=== PATIENT | female | born 1985 | race African-American/Black ===

== ENCOUNTER 2019-07-30 20:45 | Emergency (ER) | payer SELFPAY | END 2019-07-30 22:24 | disposition left against medical advice (07) | LOC: EDBD 20:45 → ER 20:49 | DX: R53.83 Other fatigue (principal); Z53.21 Procedure and treatment not carried out due to patient leaving prior to being seen by health care provider ==

== ENCOUNTER 2023-11-21 08:57 | Emergency (ER) | payer OTHER ==
[~2023-11-21] VITALS: Ht 172.7 cm; Wt 114.3 kg
[2023-11-21] MEDS: SODIUM CHLORIDE 0.9% 1,000 ML IV ONE (09:39)
[2023-11-21] MEDS: ONDANSETRON HCL 4 MG/2 ML VIAL IV ONE ×3 (09:39→13:30)
[2023-11-21 10:05] LABS: Sodium 144 mmol/L (136-145)
[2023-11-21 10:06] LABS: Calcium 9.5 mg/dL (8.7-10.4); Carbon Dioxide 24 mmol/L (20-30)
[2023-11-21 10:11] LABS: BUN/Creatinine Ratio 8.6 (10.0-20.0); Blood Urea Nitrogen 13 mg/dL (9-23); Glucose 113 mg/dL (74-106)
[2023-11-21 10:18] LABS: Basophils # (auto) 0 10 ^3/uL (0-0.2); Basophils % (auto) 0.2 % (0.0-2.0); Eosinophils # (auto) 0 10 ^3/uL (0-0.8); Eosinophils % (auto) 0.3 % (0.0-7.0); Hematocrit 43.2 % (36.0-46.0); Lymphocytes # (auto) 0.4 10 ^3/uL (0.4-5.4); Lymphocytes % (auto) 3.3 % (10.0-50.0); Mean Corpuscular Hemoglobin 31.8 pg (28.0-32.0); Mean Corpuscular Hgb Conc. 34.8 g/dL (32.0-36.0); Mean Corpuscular Volume 91.5 fL (80.0-100.0); Monocytes # (auto) 0.2 10 ^3/uL (0-1.3); Neutrophils # (auto) 10.6 10 ^3/uL (1.6-8.6); Neutrophils % (auto) 94.2 % (37.0-80.0); Platelet Count (auto) 261 10^3/uL (140-450); Red Blood Cells 4.72 10^6/uL (4.0-5.20); Red Cell Distribution Width 12.5 % (11.8-14.3); White Blood Cell 11.3 10^3/uL (4.4-10.8)
[2023-11-21 10:44] LABS: Anion Gap 10 (5-15); Chloride 110 mmol/L (98-107)
[2023-11-21 10:49] LABS: Urine Bacteria None Seen /hpf (None Seen); Urine WBC None Seen /hpf (0 - 5)
[2023-11-21 11:09] LABS: Urine Blood Negative /uL (Negative); Urine Clarity Clear (Clear); Urine Protein, UAD Negative (Negative); Urine Specific Gravity 1.007 (1.001-1.035); Urine Urobilinogen Normal (Negative)
[2023-11-21 11:10] LABS: Urine Color Straw (Yellow)
[2023-11-21] MEDS: MORPHINE SULFATE 4 MG/ML SYR/VIAL IV ONE ×2 (11:48→13:31)
[2023-11-21 11:49] VITALS: PULSE 92; RESP 18; TEMP 98.2; O2SAT 99
[2023-11-21] MEDS ORDERED: ZOFR4T PO (13:13)
[2023-11-21] MEDS ORDERED: MORP15TA PO (13:13)
[2023-11-21] MEDS: ONDANSETRON HCL 4 MG/2 ML VIAL ONE (13:31)
[2023-11-21 14:01] VITALS: BP 125/79; PULSE 87; RESP 18
== END 2023-11-21 14:03 | disposition left against medical advice (07) ==
LOC: ER 08:57
DX: R10.2 Pelvic and perineal pain (principal); R11.2 Nausea with vomiting, unspecified; I10 Essential (primary) hypertension; Z79.899 Other long term (current) drug therapy; Z88.8 Allergy status to other drugs, medicaments and biological substances
CPT/HCPCS: 36415; 80048; 81001; 85025; 96361; 96374; 96375; 96376; 99285; J2270; J2405; J7030